=== PATIENT | female | born 1975 | race Caucasian/White ===

== ENCOUNTER → 2018-07-09 08:35 | Outpatient (REF) | payer SELFPAY | LOC: OM 08:35 | PROVIDERS: PCP Internal Medicine; Visit Provider Nurse Practitioner Family | DX: Z02.83 Encounter for blood-alcohol and blood-drug test (principal) ==

== ENCOUNTER → 2018-07-09 10:05 | Outpatient (REF) | payer SELFPAY | LOC: OM 10:05 | PROVIDERS: PCP Internal Medicine; Visit Provider Nurse Practitioner Family | DX: Z02.1 Encounter for pre-employment examination (principal) ==

== ENCOUNTER 2019-04-28 17:28 | Outpatient (REF) | payer OTHER, SELFPAY ==
[2019-04-28 22:15] LABS: HCT 37.4 % (36.0-46.0); HGB 11.5 g/dL (12.0-15.5); Mean Corp. HGB Concentration 30.7 g/dL (32.0-36.0); Mean Corpuscular Hemoglobin 25.6 pg (27.0-33.0); Mean Corpuscular Volume 83.1 fL (80-95); Mean Platelet Volume 11.2 fL (8.0-11.0); Platelet Count 427 x1000/uL (130-400); RBC Distribution Width 14.7 % (11.7-14.6); White Blood Cell Count 6.49 k/cumm (4.4-10.8)
[2019-04-28 22:38] LABS: Iron 20 ug/dL (50-175); Total Iron Binding Capacity 336 ug/dL (250-450); Transferrin Sat 6 % (15-50)
[2019-04-28 22:51] LABS: TSH (W/Ref FT4) 1.69 uIU/mL (0.358-3.74)
== END 2019-04-28 17:48 ==
LOC: NCHCN 17:28
PROVIDERS: PCP Internal Medicine; Visit Provider Nurse Practitioner Family
DX: E03.9 Hypothyroidism, unspecified (principal); D64.9 Anemia, unspecified; F41.8 Other specified anxiety disorders; E66.9 Obesity, unspecified
CPT/HCPCS: 85027; 83540; 83550; 84443

== ENCOUNTER 2020-07-20 14:16 | Outpatient (REF) | payer OTHER, SELFPAY ==
[2020-07-20 20:30] LABS: HCT 35.3 % (36.0-46.0); HGB 10.7 g/dL (11.2-15.7); MCH 24.9 pg (27.0-33.0); MCHC 30.3 % (32.0-36.0); MCV 82.3 fL (80-95); MPV 11.2 fL (8.0-11.0); Platelet Count 408 10^3/uL (130-400); RBC 4.29 10^6/uL (3.93-5.22); RDW 14.6 % (11.7-14.6); RDW-SD 43.7 fL
[2020-07-20 20:46] LABS: Iron 29 ug/dL (50-170)
[2020-07-20 20:58] LABS: TSH 1.82 uIU/mL (0.36-3.74)
== END 2020-07-20 14:36 ==
LOC: NCHCN 14:16
PROVIDERS: PCP Internal Medicine; Visit Provider Internal Medicine
DX: D64.9 Anemia, unspecified (principal); E03.9 Hypothyroidism, unspecified
CPT/HCPCS: 85027; 83540; 84443

== ENCOUNTER 2020-08-25 04:46 | Outpatient (CLI) | payer OTHER, SELFPAY ==
--- NOTE | 2020-08-25 | DI.MAMMO_ITS ---
EXAM: MAMMO SCREENING CLINICAL HISTORY: SCREENING, Z12.31, FAMILY H/O BREAST CA,C80.3 TECHNIQUE: Mammograms were interpreted according to the usual protocol including computer analysis w Ingeny system, tomosynthesis and C-view imaging. COMPARISON: 2018 FINDINGS: The breasts are composed of scattered fibroglandular densities, Breast Density category B. No suspicious masses or suspicious microcalcifications are seen. No skin thickening or abnormal axillary lymph nodes are seen. There has been no significant change from prior exams. IMPRESSION: BI-RADS Category 1, Negative mammogram Yearly screening mammography is recommended. Breast Density - Category B, scattered fibroglandular densities. A negative radiographic report should not delay biopsy if a dominant or clinically suspicious mass is present. Up to ten percent of cancers are not identified on mammography. A negative report may reinforce clinical impression. Adenosis and dense breasts may obscure an underlying neoplasm. False positive reports average 6 to 10%. Patient will receive a letter notifying them of these results.
== END 2020-08-25 05:06 ==
PROVIDERS: PCP Internal Medicine; Visit Provider Internal Medicine
DX: Z12.31 Encounter for screening mammogram for malignant neoplasm of breast (principal); Z80.3 Family history of malignant neoplasm of breast
CPT/HCPCS: 77063; 77067

== ENCOUNTER 2020-10-25 16:12 | Outpatient (REF) | payer OTHER, SELFPAY ==
[2020-10-25 22:18] LABS: HCT 37.5 % (36.0-46.0); HGB 11.4 g/dL (11.2-15.7); MCH 25.1 pg (27.0-33.0); MCHC 30.4 % (32.0-36.0); MCV 82.4 fL (80-95); MPV 10.9 fL (8.0-11.0); Platelet Count 435 10^3/uL (130-400); RBC 4.55 10^6/uL (3.93-5.22); RDW 14.7 % (11.7-14.6); RDW-SD 44.4 fL; WBC 6.19 10^3/uL (4.4-10.8)
[2020-10-25 22:37] LABS: Iron 51 ug/dL (50-170); Total Iron Binding Capacity 344 ug/dL (250-450); Transferrin Sat 15 % (15-50)
== END 2020-10-25 16:32 ==
LOC: NCHCN 16:12
PROVIDERS: PCP Internal Medicine; Visit Provider Internal Medicine
DX: D64.9 Anemia, unspecified (principal)
CPT/HCPCS: 85027; 83540; 83550

== ENCOUNTER 2020-11-05 21:51 | Emergency (ER) | payer OTHER, SELFPAY ==
[2020-11-05 21:56] VITALS: BP 99/52; PULSE 74; RESP 16; TEMP 36.6; O2SAT 96
--- NOTE | 2020-11-05 22:00 | RT.EKG_ITS ---
APPROVED REPORT Exam: Resting ECG Patient Location: E HR:72 bpm ECG Measurements Heart Rate 72 AXIS OK 131 P 71 QRSd 90 QRS 9 QT 397 T 32 QTc 435 Conclusion Sinus rhythm...normal P axis, V-rate 60- 99 Posterior infarct, old...prom R T, V1-V3 or Q >40mS, V7-V9
[2020-11-05] MEDS: Normal Saline 1,000 ML 1000 ML IV (22:20)
[2020-11-05] MEDS: Meclizine 25 MG TAB PO (22:20)
--- NOTE | 2020-11-05 22:22 | W.ED.GENAD ---
Discharge Plan Disposition Patient Disposition: HOME Condition: Stable Discharge Details Clinical Impression: Vertigo Primary Care Provider: Martin Arteaga ED Provider: Morgan Miller Home Meds and New Rx's Prescriptions: New meclizine 25 mg tablet 25 mg PO TID PRN (Reason: dizziness) Qty: 30 RF: 0 Continued levothyroxine 75 MCG tablet 75 mcg PO DAILY Qty: 90 RF: 2 fluoxetine [Prozac] 20 mg Capsule 20 mg PO DAILY RF: 0 hydrochlorothiazide 12.5 mg Tablet 12.5 mg PO DAILY RF: 0 Discharge Instructions Instructions: Vertigo (ED) Additional Instructions: Your exam and symptoms are most consistent with vertigo take the meclizine as needed follow up with your primary care provider within 1-2 weeks especially if symptoms continue return to the emergency department if you feel more ill, have difficulty breathing or chest pain Medical Decision Making 45 yo female states an hour prior to arrival she turned her head and felt dizzy and lightheaded and had nausea. She has noticed that she continues to have dizzy and room spinning sensation when turning her head since, no nausea. Denies ever having chest pain, dyspnea, abdominal pain or headache. She arrives hd stable speaking in full sentences. She has no focal motor or sensation deficits and steady gait and does have mild horizontal nystagmus when looking to the left. Normal tm's and external auditory canals. Her symptoms seem most consistent with peripheral vertigo and will tx with meclizine, exam is reassuring against central vertigo and do not feel head imaging indicated. No neck pain or bruit so doubt dissection of carotids or vertebral arteries. No chest pain or shortness of breath so doubt acs and symptoms seem more vertigo than presyncope so doubt arrythmmia pt's labs unremarkable other than mild increase in creatinine compared to 2018 and she feels improved with iv fluids and meclizine with stable exam. Suspect peripheral vertigo and possible dehydration. Will d/c and have her f/u with pcp and return precautions given Differential Diagnosis Differential Diagnosis: bppv, anemia, nstemi Lab Data Lab results reviewed: Yes I reviewed the patient's lab results. ECG Data Attestation: I personally reviewed and interpreted this ECG (s) as follows: Prior ECG tracings: not available for review Interpretation: sinus rhythm, rate of 72, pr 131, qtc 435 HPI General Mode of arrival: ambulatory. Date/Time Provider Initiated Documentation: 11/05/20 21:52. Limitations to Documentation: no limitations. Information obtained by: patient. History of Present Illness 45 year old F presents to the emergency department with the chief complaint of dizzy, described as moderate, and it has been intermittent. other things that improve symptom(s), (head turning) Movement worsens symptoms . Patient did receive the following treatments prior to arrival, none Related Data Home Medications Medication Instructions Recorded Confirmed levothyroxine 75 mcg PO DAILY #90 tab 12/29/17 11/05/20 fluoxetine [Prozac] 20 mg PO DAILY 11/05/20 11/05/20 hydrochlorothiazide 12.5 mg PO DAILY 11/05/20 11/05/20 meclizine 25 mg PO TID PRN #30 tab 11/05/20 Previous Rx's Medication Instructions Recorded levothyroxine 75 mcg PO DAILY #90 tab 12/29/17 meclizine 25 mg PO TID PRN #30 tab 11/05/20 Allergies Allergy/AdvReac Type Severity Reaction Status Date / Time acetaminophen [From Tylenol] Allergy Mild Hives Unverified 06/25/18 05:45 amoxicillin Allergy Mild Hives Unverified 06/25/18 05:45 General Stated Complaint: Dizzy/Sync SHIRA: 3 Review of Systems All systems reviewed & are unremarkable except as noted in HPI and below Constitutional Constitutional: Denies chills, Denies fever(s) and Denies weakness Eyes Eyes: Denies loss of vision Cardiovascular Cardiovascular: Denies chest pain and Denies dyspnea Respiratory Respiratory: Denies cough and Denies dyspnea Gastrointestinal Gastrointestinal: Denies abdominal pain Musculoskeletal Musculoskeletal: Denies joint swelling Neurologic Neurologic: Denies loss of vision and Denies weakness Psychiatric Psychiatric: Denies depression [facility] Surgical History (Updated 07/03/18 @ 14:50 by Audrey Jackson RN) Appendectomy (06/25/18) Social History Smoking/Tobacco Use Status: Never Smoking risk assessment performed?: Yes Alcohol Intake: never Drug use: Never Substance use type: does not use Do you feel safe at home: Yes Do you feel safe in your relationship?: Yes Exam Const General: no acute distress Orientation: alert HENMT Head: normal to inspection Ears: external ears normal General nose exam: external nose normal Mouth: moist mucous membranes Eyes General: appearance normal, both eyes and all related structures Neck Neck: normal visual inspection Resp Effort & Inspection: normal respiratory effort and able to speak in complete sentences Cardio Rate: regular rate Skin General skin exam: no rashes or lesions noted Neuro General: patient alert and patient oriented x3 Extrem General: normal to inspection Psych Mental Status: mental status grossly normal Course Vital Signs Vital signs: Vital Signs Temperature 36.6 C 11/05/20 21:56 Pulse 74 11/05/20 21:56 Respiratory Rate 16 11/05/20 21:56 Blood Pressure 99/52 L 11/05/20 21:56 Pulse Oximetry 96 11/05/20 21:56 Temperature 36.6 C 11/05/20 21:56 Temperature Source Skin 11/05/20 21:56 Pulse 74 11/05/20 21:56 Respiratory Rate 16 11/05/20 21:56 Blood Pressure 99/52 L 11/05/20 21:56 Blood Pressure Position Supine 11/05/20 21:56 Pulse Oximetry 96 11/05/20 21:56 Oxygen Delivery Method Room Air 11/05/20 21:56 Oxygen Flow Rate 0 11/05/20 21:56
[2020-11-05 22:26] LABS: Abs Immature Grans 0.02 10^3/uL (0.0-0.06); Absolute Basophil Count 0.06 10^3/uL (0.0-0.2); Absolute Lymphocyte Count 2.39 10^3/uL (1.2-3.4); Absolute Monocyte Count 0.53 10^3/uL (0.1-0.8); Basophils % 0.6; Eosinophils % 2.2; HCT 35.9 % (36.0-46.0); HGB 10.9 g/dL (11.2-15.7); Immature Grans % 0.2; Lymphocytes % 25.7; MCH 24.8 pg (27.0-33.0); MCHC 30.4 % (32.0-36.0); MCV 81.6 fL (80-95); MPV 10.6 fL (8.0-11.0); Monocytes % 5.7; Neutrophils % 65.6; Nucleated RBC 0 %; Platelet Count 413 10^3/uL (130-400); RDW 14.6 % (11.7-14.6); RDW-SD 43.2 fL
[2020-11-05 22:27] VITALS: RESP 16
[2020-11-05 22:45] LABS: ALT 18 U/L (14-59); AST 14 U/L (15-37); Albumin 3.1 g/dL (3.4-5.0); Alkaline Phosphatase 63 U/L (46-116); Anion Gap 6.3 mmol/L (3-11); BUN 19 mg/dL (7-18); Bilirubin, Total 0.1 mg/dL (0.2-1.0); CO2 26.7 mmol/L (21.0-32.0); CREATININE 1.13 mg/dL (0.55-1.02); Calcium 8.3 mg/dL (8.5-10.1); Chloride 105 mmol/L (98-107); Estimated GFR 52.31 (mL/min/1.73m2); Glucose 127 mg/dL (74-106); Magnesium 1.9 mg/dL (1.8-2.4); Potassium 3.7 mmol/L (3.5-5.1); Sodium 138 mmol/L (136-145); Total Protein 6.8 g/dL (6.4-8.2); Troponin I < 0.05 ng/mL (<0.06)
[2020-11-05 23:09] VITALS: BP 100/60; PULSE 68; RESP 16; TEMP 36.6; O2SAT 100
--- NOTE | 2020-11-05 23:39 | NUR.NOTE ---
Pt feeling better after fluids. Denies dizziness when standing and ambulating.
== END 2020-11-05 23:15 | disposition home or self-care (01) ==
PROVIDERS: Emergency Provider Emergency Medicine; PCP Internal Medicine
DX: H81.392 Other peripheral vertigo, left ear (principal); R11.0 Nausea
CPT/HCPCS: 36415; 80053; 93005; 96360; 99284; 83735; 84443; 84484; 85025; 93010

== ENCOUNTER 2021-08-24 01:53 | Outpatient (CLI) | payer OTHER, SELFPAY ==
[2021-08-24 08:30] LABS: HCT 34.6 % (36.0-46.0); HGB 10.2 g/dL (11.2-15.7); MCH 23.3 pg (27.0-33.0); MCHC 29.5 % (32.0-36.0); MPV 10.9 fL (8.0-11.0); Platelet Count 478 10^3/uL (130-400); RBC 4.38 10^6/uL (3.93-5.22); RDW 15.7 % (11.7-14.6); RDW-SD 44.6 fL; WBC 5.13 10^3/uL (4.4-10.8)
[2021-08-24 09:44] LABS: ALT 21 U/L (14-59); AST 13 U/L (15-37); Albumin 3.3 g/dL (3.4-5.0); Alkaline Phosphatase 77 U/L (46-116); Anion Gap 9.3 mmol/L (3-11); BUN 13 mg/dL (7-18); Bilirubin, Total 0.2 mg/dL (0.2-1.0); CO2 26.7 mmol/L (21.0-32.0); CREATININE 0.8 mg/dL (0.55-1.02); Calcium 8.5 mg/dL (8.5-10.1); Calculated LDL 140 mg/dL (<100); Chloride 105 mmol/L (98-107); Cholesterol 206 mg/dL (<200); Ferritin 7 ng/mL (8-252); Glucose 90 mg/dL (74-106); HDL Cholesterol 56 mg/dL (40-60); Potassium 4.6 mmol/L (3.5-5.1); Sodium 141 mmol/L (136-145); TSH 1.27 uIU/mL (0.36-3.74); Total Protein 6.6 g/dL (6.4-8.2); Triglyceride 51 mg/dL (<150)
== END 2021-08-24 01:54 | disposition home or self-care (01) ==
LOC: LBO 01:53
PROVIDERS: PCP Internal Medicine; Visit Provider Family Medicine
DX: D50.9 Iron deficiency anemia, unspecified (principal); Z00.00 Encounter for general adult medical examination without abnormal findings; E66.9 Obesity, unspecified
CPT/HCPCS: 36415; 80053; 80061; 85027; 82728; 84443

== ENCOUNTER 2022-09-16 16:26 | Outpatient (REF) | payer OTHER, SELFPAY ==
[2022-09-16 18:52] LABS: HGB 11.1 g/dL (11.2-15.7); MCH 24.8 pg (27.0-33.0); MCV 83 fL (80-95); MPV 10.5 fL (8.0-11.0); Platelet Count 434 10^3/uL (130-400); RBC 4.47 10^6/uL (3.93-5.22); RDW 14.7 % (11.7-14.6); RDW-SD 44.4 fL; WBC 7.09 10^3/uL (4.4-10.8)
[2022-09-16 19:14] LABS: Ferritin 8 ng/mL (8-252); TSH 1.94 uIU/mL (0.36-3.74)
== END 2022-09-16 16:27 | disposition home or self-care (01) ==
LOC: NCHCN 16:26
PROVIDERS: PCP Internal Medicine; Visit Provider Family Medicine
DX: E03.9 Hypothyroidism, unspecified (principal); D50.9 Iron deficiency anemia, unspecified; Z00.00 Encounter for general adult medical examination without abnormal findings
CPT/HCPCS: 85027; 82728; 84443

== ENCOUNTER 2023-01-06 14:09 | Outpatient (REF) | payer OTHER, SELFPAY ==
--- NOTE | 2023-01-06 14:00 | ENDOMET_PTH ---
PATIENT: Sari Rhodes LOC: [facility] U#:[id number] AGE/SX: 47/F ROOM: RE01/06/[address]: Paulette Day : 1975 BED: DIS: 01/06/2023 SPEC #: [id number] RECD: 01/06/23 17:29 STATUS: MAC REQ #: [id number] RAUL: 01/06/23 14:[address]: Paulette Day DEPT: Surgical Specimen RECD BY: Thania Carias ENTERED: 01/06/23 17:30 SP TYPE: Endomet OTHR DR: Waldo Chester Tissues: 1 - ENDOMETRIUM BX/CURRETTE Procedures: GROSS AND MICRO LEVEL 4 Comments: [id number]
--- NOTE | 2023-01-06 14:00 | PAPFT_PTH ---
PATIENT: Sari Rhodes LOC: [facility] U#:[id number] AGE/SX: 47/F ROOM: RE01/06/[address]: Paulette Day : 1975 BED: DIS: 01/06/2023 SPEC #: [id number] RECD: 01/06/23 17:43 STATUS: MAC REQ #: [id number] RAUL: 01/06/23 14:[address]: Paulette Day DEPT: [facility] Cytology RECD BY: Thania Carias ENTERED: 01/06/23 17:43 SP TYPE: PAPFT OTHR DR: Waldo Chester Tissues: 1 - CX/ENDOCX FOR PAP SMEARS Procedures: PAP THIN PREP/UVM Screening Comments: [id number]
== END 2023-01-06 14:10 | disposition home or self-care (01) ==
LOC: LBN 14:09
PROVIDERS: PCP Family Medicine; Visit Provider Obstetrics & Gynecology Gynecology
DX: Z12.4 Encounter for screening for malignant neoplasm of cervix (principal); N93.9 Abnormal uterine and vaginal bleeding, unspecified
CPT/HCPCS: 88142; 88305

== ENCOUNTER 2023-02-10 01:54 | Outpatient (CLI) | payer OTHER, SELFPAY ==
--- NOTE | 2023-02-10 06:30 | DI.MAMMO_ITS ---
Exam(s) MAMMO SCREENING EXAM: MAMMO SCREENING CLINICAL HISTORY: screening,z12.39. TECHNIQUE: Bilateral full field digital CC and MLO mammographic images were obtained with 3D tomosyn thesis and utilizing computer aided detection (CAD). COMPARISON: Prior mammograms were reviewed. FINDINGS: There has been no significant change in the appearance and distribution of the fibroglandular tissue. There are no CAD designations. There are no new spiculated masses nor malignant appearing microcalcification groups. There is no significant architectural distortion nor skin thickening-retraction. IMPRESSION: No radiographic evidence of malignancy. BI-RADS Category 1 - Negative Breast Density - Category B - Scattered areas of fibroglandular density Breast density Category C or D implies that the patient has dense breast tissue. Dense breast tissue can make it harder to find cancer on a mammogram. Dense breast tissue is also associated with an incr eased risk of breast cancer. This information about the result of the mammogram report was provided to the patient to raise their awareness. Use this report when you speak with the patient about their risks for breast cancer, which includes their family history. At that time, you may recommend additional screening tests (Ultrasoun d or MRI) as these tests may add significant information. A negative radiographic report should not delay biopsy if a dominant or clinically suspicious mass is present. Up to ten percent of cancers are not identified on mammography. A negative report may reinforce clinical impression. Adenosis and dense breasts may obscure an underlying neoplasm. False positive reports average 6 to 10%. Patient will receive a letter notifying them of these results.
--- NOTE | 2023-02-10 06:30 | DI.US_ITS ---
Exam(s) US PELVIS TRANSVAGINAL EXAM: US PELVIS TRANSVAGINAL CLINICAL HISTORY: Abnormal uterine bleeding,n93.9 TECHNIQUE: Ultrasound of the pelvis was performed both transabdominal and transvaginal. COMPARISON: US LEFT BREAST ULTRASOUND from 01/07/2018 CT ABD PELVIS WITH CONTRAST from 06/25/2018 FINDINGS: UTERUS: Nongravid and anteverted Measures 11 cm length x 7 cm AP x 8 cm wide. There is a 2.3 x 2.3 cm fibroid at the anterior fundal area.There is 2.8 x 2.9 cm fibroid in the post erior-lower myometrium. Endometrial thickness measures 5-6 mm. There is no fluid in the endometrial canal. CERVIX: There are no obvious nabothian cysts. OVARIES: Not seen bilaterally CUL-DE-SAC: Trace fluid in the cul-de-sac IMPRESSION: 1. Multiple uterine fibroids. Endometrium measures 5-6 millimeters 2. Both ovaries are not identified on this study. 3. There is a tiny amount of fluid in the cul-de-sac. DATA REPOSITORY:
== END 2023-02-10 02:14 ==
LOC: DI 01:55
PROVIDERS: PCP Family Medicine; Visit Provider Obstetrics & Gynecology Gynecology
DX: Z12.31 Encounter for screening mammogram for malignant neoplasm of breast (principal); N93.8 Other specified abnormal uterine and vaginal bleeding; D25.9 Leiomyoma of uterus, unspecified
CPT/HCPCS: 77063; 77067; 76830; 76856

== ENCOUNTER 2023-02-24 03:34 | Outpatient (CLI) | payer OTHER, SELFPAY ==
[2023-02-24 08:38] LABS: HCT 32.8 % (36.0-46.0); MCH 23.3 pg (27.0-33.0); MCHC 30.5 % (32.0-36.0); MCV 76 fL (80-95); MPV 10.5 fL (8.0-11.0); Platelet Count 486 10^3/uL (130-400); RDW 15.4 % (11.7-14.6); RDW-SD 42.3 fL; WBC 7.51 10^3/uL (4.4-10.8)
[2023-02-24 08:59] LABS: BUN 11 mg/dL (7-18); CREATININE 0.8 mg/dL (0.55-1.02); Chloride 111 mmol/L (98-107); Estimated GFR 91.97 (mL/min/1.73m2); Glucose 82 mg/dL (74-106); Potassium 4.2 mmol/L (3.5-5.1); Sodium 144 mmol/L (136-145)
== END 2023-02-24 03:35 | disposition home or self-care (01) ==
LOC: LBO 03:34
PROVIDERS: PCP Family Medicine; Visit Provider Obstetrics & Gynecology Gynecology
DX: N93.8 Other specified abnormal uterine and vaginal bleeding (principal); D64.9 Anemia, unspecified; Z01.818 Encounter for other preprocedural examination; Z01.812 Encounter for preprocedural laboratory examination
CPT/HCPCS: 36415; 80048; 85027; 86850; 86900; 86901

== ENCOUNTER 2023-02-26 08:53 | Day surgery (SDC) | payer OTHER, SELFPAY ==
[2023-02-26] VITALS (9 sets, daily range): BP systolic 89–126; BP diastolic 43–81; PULSE 64–79; RESP 6–17; TEMP 36.4–36.9; O2SAT 95–99; BMI 42.7
--- NOTE | 2023-02-26 09:39 | W.ANESPRE ---
General Info Date of Service Date Performed: 02/26/23 Height: 5 ft 1 in Weight: 102.6 kg Body Mass Index (BMI): 42.7 Surgical Procedure: Operation Date: 02/26/23 10:40 Proposed Procedure Side Surgeon p [place] Thermal Endometrial Ablation Paulette Day MD Meds Allergies and Home Medications Allergies Allergy/AdvReac Type Severity Reaction Status Date / Time acetaminophen [From Tylenol] Allergy Mild Hives Unverified 02/26/23 09:19 amoxicillin Allergy Mild Hives Unverified 02/26/23 09:19 Home Medication Medication Instructions Recorded levothyroxine 75 mcg tablet 75 mcg PO DAILY #90 tabs 12/29/17 fluoxetine 20 mg capsule (Prozac) 20 mg PO DAILY 11/05/20 norethindrone acetate 5 mg tablet 5 mg PO DAILY #30 tabs 01/16/23 calcium carbonate 500 mg calcium 1,000 mg PO PRN PRN 02/26/23 (1,250 mg) chewable tablet Current Visit Medications: Current Medications Generic Name Dose Route Start Last Admin Trade Name Shubhamq PRN Reason Stop Dose Admin Ringer's Solution 1,000 mls @ 125 mls/hr 02/26/23 06:00 IV 03/27/23 23:59 INFUSION LUCIO IV Miscellaneous Supplies 1 each 02/26/23 06:00 Iv Access IV 03/27/23 23:59 DIRECTED LUCIO Sodium Chloride 0 ml 02/26/23 06:00 Normal Saline Flush 10 Ml Syr IV 03/27/23 23:59 PRN PRN Sodium Chloride 0 ml 02/26/23 06:00 Normal Saline 10 Ml Vial IJ 03/27/23 23:59 DIRECTED PRN Sterile Water 0 ml 02/26/23 06:00 Water,Injection,Sterile 10 Ml Vial IJ 03/27/23 23:59 DIRECTED PRN PFSH Active Problems Active Problems: Problem Status Onset Code Acute appendicitis K35.80 Abnormal uterine bleeding (AUB) N93.9 Surgical History Surgical History (Updated 02/26/23 @ 09:18 by Jessika Sanford RN) Appendectomy (06/25/18) H/O tubal ligation H/O: Hx of cholecystectomy Tobacco Smoking/Tobacco Use Status: Never Alcohol Alcohol Intake: never Substance Use Substance use: Never Substance use type: does not use Prental History History 2 Para Hx # Term Pregnancies 2 Multiple births Hx # Pregnancies Ectopic pregnancies AB induced Hx Number of Living Children 2 AB spontaneous Vital Signs and Lab Results Vital Signs Most Recent Vital Signs in EMR: Most Recent Vital Signs Temp Pulse Resp BP Pulse Ox 36.4 C L 72 16 126/81 99 02/26/23 08:55 02/26/23 08:55 02/26/23 08:55 02/26/23 08:55 02/26/23 08:55 Lab Results Blood Type / Crossmatch: Patient ABO/Rh A Positive 02/24/23 Antibody Screen NEGATIVE 02/24/23 Complete Blood Count: White Blood Count 7.51 10^3/uL (4.4-10.8) 02/24/23 08:30 Red Blood Count 4.30 10^6/uL (3.93-5.22) 02/24/23 08:30 Hemoglobin 10.0 g/dL (11.2-15.7) L 02/24/23 08:30 Hematocrit 32.8 % (36.0-46.0) L 02/24/23 08:30 Platelet Count 486 10^3/uL (130-400) H 02/24/23 08:30 Complete Metabolic Panel: Sodium 144 mmol/L (136-145) 02/24/23 08:30 Potassium 4.2 mmol/L (3.5-5.1) 02/24/23 08:30 Chloride 111 mmol/L (98-107) H 02/24/23 08:30 Carbon Dioxide 26.0 mmol/L (21.0-32.0) 02/24/23 08:30 BUN 11 mg/dL (7-18) 02/24/23 08:30 Creatinine 0.8 mg/dL (0.55-1.02) 02/24/23 08:30 Est GFR (CKD-EPI 2020) 91.97 (mL/min/1.73m2) 02/24/23 08:30 Calcium 8.0 mg/dL (8.5-10.1) L 02/24/23 08:30 Glucose 82 mg/dL (74-106) 02/24/23 08:30 Liver Function Panel: No Data to Display Coagulation Panel: No Data to Display Cardiac Panel: No Data to Display Arterial Blood Gas: No Data to Display Venous Blood Gas: No Data to Display Pancreas Panel: No Data to Display Thyroid Panel: No Data to Display Infectious Disease: No Data to Display Blood Cultures: No Data to Display Toxicology Panel: No Data to Display Panel: No Data to Display Anesthesia Assessment and Plan Anesthesia History Personal History: Awareness Under Anesthesia Family History: No Family History of Anesthesia Complications Exercise Tolerance Exercise Tolerance: Metabolic Equivalents>4 Pertinent Negatives Pertinent Negatives: No Symptoms of GERD, No Major Cardiovascular Symptoms or Complaints and No Major Pulmonary Symptoms or Complaints Cardiac & Pulmonary Exam Cardiac Exam: Normal S1/S2 Heart Sounds Pulmonary Exam: Clear Bilateral Breath Sounds Implantable Cardiac Device Does patient have a Pacemaker or an ICD?: No Airway Exam Known Difficult Airway: No Mallampati Class: 2 Mouth Opening: Normal (> 3cm) Thyromental Distance: Greater than 3 cm Neck Range of Motion: Full ROM Neck Circumference: Normal Teeth Condition: Normal Dentition ASA Classification ASA Score: ASA 2 Emergency Case?: No NPO Status NPO Status: NPO Clears >2 hours, Solids >8 hours Status Status: Negative HCG Anesthesia Plan Resuscitation Status: Full Code Anesthesia Technique: General Anesthesia Airway Planned: LMA Monitors Used: Standard Monitors
[2023-02-26] MEDS: Lactated Ringers 1,000 ML 125 ML IV (09:45)
[2023-02-26] MEDS: Bupivacaine 0.25% Pres-Free 30 ML VIAL (10:45)
--- NOTE | 2023-02-26 11:08 | PDOC.DSDIS_ITS ---
Date of service: 02/26/23 Time of Service: 11:08 Discharge Plan Disposition Patient Disposition: Home Condition: Fair Discharge Details Reason For Visit: Hydrothermal endometrial ablation Attending Provider: Paulette Day Primary Care Provider: Waldo Chester Home Meds and New Rx's Prescriptions: No Action norethindrone acetate 5 mg tablet 5 mg PO DAILY Qty: 30 2RF levothyroxine 75 MCG tablet 75 mcg PO DAILY Qty: 90 2RF Rx Instructions: 1 tab PO daily fluoxetine [Prozac] 20 mg Capsule 20 mg PO DAILY calcium carbonate [Tums 500] 500 mg calcium (1,250 mg) Tablet,Chewable 1,000 mg PO PRN PRN Discharge Instructions Additional Instructions: You have been given a prescription for oxycodone 5 mg tablet. Take 1 tablet every 6 hours as needed for pain along with ibuprofen 600 mg every 6 hours as needed for pain. You can expect watery yellow discharge for the next 4 weeks. You may be having bloody discharge for the next 2 days. Do not use tampons for the next 4 weeks. Please stop your norethindrone day. Stand Alone Forms: DSU Post [employer] Surgery Activity:: Activity as Tolerated Diet:: As Tolerated Discharge Orders Discharge Orders: Discharge Order (Routine); Ordered 02/26/23 Ordered By: Paulette Day DS: Diagnosis Discharge Diagnosis (1) S/P endometrial ablation: Status: Acute
[2023-02-26] MEDS: ePHEDrine 25 MG/5 ML Syringe IVP (11:10)
[2023-02-26] MEDS: HYDROmorphone 2 MG/ML SYR IVP ×4 (11:31→12:07)
--- NOTE | 2023-02-26 12:39 | W.ANESPOSTOP ---
Postoperative Evaluation Date, Time and Location Date Performed: 02/26/23 Time Performed: 12:12 Patient Location: PACU Vital Signs Most Recent Imported Vital Signs: Most Recent Vital Signs Temp Pulse Resp BP Pulse Ox 36.4 C L 75 16 111/62 98 02/26/23 12:12 02/26/23 12:12 02/26/23 12:12 02/26/23 12:12 02/26/23 12:12 Pain Score Most Recent Pain Score: Most Recent Pain Score Pain Level 4 02/26/23 12:12 Assessment Mental Status: Awake (Alert & Oriented to Patient Baseline) Airway and Respiratory Function: Patent airway with normal (patient baseline) respiratory exam Cardiovascular Function: Hemodynamically Stable Hydration Status: Adequately Hydrated Nausea & Vomiting: No Nausea or Vomiting Pain: Pain is tolerable per patient Peripheral Nerve Block: Patient did not receive a nerve block
--- NOTE | 2023-02-26 13:55 | W.PM.OP ---
Date of service: 02/26/23 Time of Service: 13:55 Operative Note Operative Note DATE OF PROCEDURE: 02/26/23 PRE-OP DIAGNOSIS: abnormal uterine bleeding, anemia PROCEDURE: Hydrothermal endometrial ablation SURGEON: Paulette Day ANESTHESIA TYPE: General LMA/ETT Refer to Anesthesia Record ESTIMATED BLOOD LOSS: 0 PATHOLOGY: none sent COMPLICATIONS: None Patient was transported to: PACU Patient's condition: stable Indications: Patient is a 47-year-old G2, P2 female who has developed microcytic anemia secondary to regular heavy menses with clots and uterine cramping.? She requested treatment to improve her periods.? Findings: Normal appearing uterine cavity. Both tubal ostia visualized. No intracavitary filling defects noted. Excellent treatment effect after ablation performed. Procedure Description: Patient was taken to the operating room where she was placed in the dorsal supine position and general anesthesia was administered without difficulty. She was then placed in the dorsolithotomy position in yellowfin stirrups and prepped and draped in the usual sterile fashion. SCDs were in place. No antibiotics were required. After a surgical timeout was performed a bivalve speculum was placed in the patient's vagina. The anterior lip of the cervix was infiltrated with 1 cc 0.25% bupivacaine and a single-tooth tenaculum was used to grasp the anterior lip of the cervix. A paracervical block was performed with infiltration of 5 cc of 0.25% bupivacaine at the 4 o'clock and 8 o'clock paracervical spaces respectively. Cervix was then sequentially dilated to a maximum of 16 Stevenson. A hysteroscope sheath was inserted into the uterine cavity and a cavity assessment was performed with the above noted findings. The tip of the hysteroscope sheath was positioned to allow visualization of the uterine fundus, both tubal ostia in the midportion of the uterine cavity. The sheath was protected from the vaginal elizondo by the speculum. Heated isotonic saline was then administered via gravity into the uterus through the sheath. Once a safety assessment was performed the treatment phase of the procedure began and under direct observation the uterine cavity was treated with heated isotonic saline at 90 ?C for 10 minutes. Intrauterine cool-down phase was performed for 1 minute. The uterine cavity was carefully assessed with hysteroscopy and the uterus was noted to have a satisfactory treatment effect and the integrity of the uterine cavity was confirmed. After these findings the hysteroscope was removed as were the instruments removed from the vagina. Tenaculum site was noted to be hemostatic. The patient was placed in the dorsal supine position successfully awakened from anesthesia and transported to day surgery unit in stable condition. All sponge lap needle counts correct x2
== END 2023-02-26 13:40 | disposition home or self-care (01) ==
PROVIDERS: PCP Family Medicine; Visit Provider Obstetrics & Gynecology Gynecology
PROC: (CPT 58353; principal; 2023-02-26 10:30)
DX: N93.9 Abnormal uterine and vaginal bleeding, unspecified (principal); D50.9 Iron deficiency anemia, unspecified; N92.0 Excessive and frequent menstruation with regular cycle
CPT/HCPCS: 58563; 81025; J1100; J1170; J1885; J2250; J2405; J2704

== ENCOUNTER 2024-05-17 16:21 | Outpatient (REF) | payer OTHER, SELFPAY ==
[2024-05-17 21:54] LABS: TSH 2.04 uIU/Ml (0.36-3.74)
== END 2024-05-17 16:22 | disposition home or self-care (01) ==
LOC: NCHCN 16:21
PROVIDERS: PCP Family Medicine; Visit Provider Family Medicine
DX: E03.9 Hypothyroidism, unspecified (principal)
CPT/HCPCS: 84443

== ENCOUNTER 2025-05-25 19:02 | Outpatient (REF) | payer OTHER, SELFPAY ==
[2025-05-25 14:37] LABS: Abs Immature Grans 0.01 10^3/uL (0.0-0.06); HCT 42.6 % (36.0-46.0); HGB 13.7 g/dL (11.2-15.7); Immature Grans % 0.2 %; MCH 28.7 pg (27.0-33.0); MCHC 32.2 % (32.0-36.0); MCV 89 fL (80-95); MPV 10.9 fL (8.0-11.0); Platelet Count 328 10^3/uL (130-400); RBC 4.78 10^6/uL (3.93-5.22); RDW 13.2 % (11.7-14.6); RDW-SD 43.1 fL; WBC 5.98 10^3/uL (4.4-10.8)
[2025-05-25 15:31] LABS: Ferritin 34 ng/mL (8-252); TSH 1.75 uIU/mL (0.36-3.74)
== END 2025-05-25 19:03 | disposition home or self-care (01) ==
LOC: NCHCN 19:02
PROVIDERS: PCP Family Medicine; Visit Provider Family Medicine
DX: E03.9 Hypothyroidism, unspecified (principal); N92.0 Excessive and frequent menstruation with regular cycle
CPT/HCPCS: 82728; 84443; 85025

== ENCOUNTER 2025-05-28 17:01 | Outpatient (REF) | payer OTHER, SELFPAY | END 2025-05-28 17:02 | disposition home or self-care (01) | LOC: LBN 17:01 | PROVIDERS: PCP Family Medicine; Visit Provider Physician Assistant Medical | DX: J02.9 Acute pharyngitis, unspecified (principal) | CPT/HCPCS: 87070 ==